=== PATIENT | male | born 1950 | race Caucasian/White ===

== ENCOUNTER → 2016-08-31 | Outpatient (CLI) | payer BC ==
[~2016-08-31] MED LIST: BACTRIM DS DPS1 TAB PO; CLARITIN DPS10 MG PO; ENULOSE10 GM/15 M PO; GLUCOPHAGE-DPS500 MG PO; LASIX DPS80 MG PO; MIRALAX PACKET17 GM PO; NOVOLIN N100 UNIT/1 SQ; SPIRONOLACT50 MG PO; TYLENOL EXTRA500 M1 PO; ULTRAM DPS50 MG PO; ZAROXOLYN2.5 MG PO
== END | disposition home or self-care (01) ==
DX: E11.65 Type 2 diabetes mellitus with hyperglycemia (principal); Z71.3 Dietary counseling and surveillance

== ENCOUNTER 2016-09-14 11:15 | Inpatient (IN) | payer BC ==
[~2016-09-14] VITALS: Ht 185.4 cm; Wt 102.0 kg
--- NOTE | 2016-09-15 08:23 | HP ---
ADMIT: 09/14/2016 RM/LOC: 503 [facility] MR#: [id number] [address] [id number] MICHAEL DINH [address] [place] [address] History and Physical SEX: M AGE: 66 : 1950 DATE OF SERVICE: ADDENDUM: This is an addendum to the H and P dictated by Dr. Maribel Spence on today's date as well. The patient is seen and evaluated with Dr. Spence. I agree with her history, exam, assessment and plan. The patient with increased confusion and longstanding history of liver disease, looks like his UA is positive. We will treat him with antibiotics. He has some [id number] hepatic encephalopathy, which is new for him. Treat him with some lactulose as well. Control his diabetes. On exam, he had some very mild asterixis. Clearly confused and not his normal self, trouble tracking few conversation, otherwise really had minimal edema. No ascites. Lungs are clear. The patient is in agreement with plan with admission and until he improves with as well as further evaluation. Please see H and P dictated by Dr. Spence for full details. Augustus Harrison MD/ jose antonio JOB #: [id number] CC: Augustus Harrison, Attending Physician Augustus Harrison, Family Physician
--- NOTE | 2016-09-16 07:17 | HP ---
ADMIT: 09/14/2016 RM/LOC: 503 [facility] MR#: [id number] 2620 [facility] [address] [place] [id number] MICHAEL SRIVASTAVA [address] [place] [address] History and Physical SEX: M AGE: 66 : 1950 DATE OF SERVICE: 09/14/2016 HISTORY OF PRESENT ILLNESS: Mr. Srivastava is a 66-year-old man with a past medical history significant for decompensated alcoholic cirrhosis; type 2 diabetes, insulin dependent; reset osmostat syndrome; thrombocytopenia secondary to his cirrhosis; malnutrition secondary to his cirrhosis; anemic of chronic disease; hypertension; and a history of E. coli sepsis with spinal abscess, osteomyelitis, and septic arthritis, all treated back in 2015. He presented to the clinic today with some altered mental status. He was then admitted to [facility] [place]. Mr. Srivastava is accompanied by his , Vero. History is obtained from both of these individuals. They state that he was in his usual state of health until yesterday. Vero states that when she returned home from work, he was very altered and confused. He did not seem to know how to do things such as checking his blood sugars. She states that he had forgotten to take all his morning medications as well. The patient states that he has been dizzy yesterday and today. He has had poor appetite and has not been eating as much either. He denies any nasal congestion, cough, sore throat, or runny nose. He denies any chest pain or shortness of breath. He states he has not had any fevers or chills. He denies any abdominal pain. He is unsure if he has been having frequent bowel movements. His states that she notes he has had one last night as he forgot to flush the toilet. She denies there being any blood in his stool. The patient states that he has not had any difficulties urinating. He has had generalized weakness over the last 24 hours and has had more difficulties getting in and out of his chair. He has also been having difficulties using the lift. He states that this lightheadedness is with all activities. He denies it being predominant with sitting or standing. He states that he has had some blurry vision today as well. He denies any double vision. He states that he has not had his vision checked in the last couple of years. states that he has been taking his docusate and MiraLax, but they have really if ever given him lactulose. He has not taken any lactulose within the last several days to weeks. PAST MEDICAL HISTORY: 1. Significant for alcoholic cirrhosis, decompensated and complicated by thrombocytopenia as well as malnutrition. 2. Anemia of chronic disease. 3. Insulin-dependent type 2 diabetes. 4. Hypertension. 5. History of spinal abscess as well as osteomyelitis of his spine and septic arthritis. This is found to be related to E. coli. He was treated at [facility] in [place] for this in September and into October 2015. PAST SURGICAL HISTORY: 1. History of appendectomy. 2. History of flexible sigmoidoscopy and EGD. 3. History of back and knee surgeries. With regard to his EGD, this was completed in October 2015 and did not reveal any ADMIT: 09/14/2016 RM/LOC: 503 [facility] MR#: [id number] [address] [address] MICHAEL SRIVASTAVA [address] [place] [address] History and Physical SEX: M AGE: 66 : 1950 evidence of esophageal varices. He did have some portal hypertensive gastropathy noted. HOME MEDICATIONS: Include: 1. NPH 14 units b.i.d. 2. Metformin 1000 p.o. b.i.d. 3. Lasix 40 mg daily. 4. Metolazone 2.5 mg daily. 5. Aldactone 25 mg p.o. daily. 6. Also has docusate and MiraLax available to him. 7. Claritin. 8. Lactulose 30 g t.i.d. 9. Boost supplement as needed. ALLERGIES: NO KNOWN MEDICAL ALLERGIES. FAMILY HISTORY: The patient's mother had colon cancer and his brother also had cancer, unknown type. No other pertinent family medical history. SOCIAL HISTORY: The patient states he discontinued use of tobacco approximately 33 years ago. He smoked 1 to 2 packs per day prior to this for a number of years. Alcohol: The patient states he has not consumed alcohol for the last year. His confirms that he has been abstinent during this time period. He denies any illicit drugs. 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 He states that he lives in [place] with his Vero as well as few dogs and cats. No young children around. He states that in his free time, he just mainly sits around the house and watches TV. He states that he does not go out much. REVIEW OF SYSTEMS: A 10-point review of systems is completed for this encounter and is negative other than those mentioned in the HPI section. PHYSICAL EXAMINATION: VITAL SIGNS: In the clinic, the patient had a heart rate of 83, blood pressure 132/66, respiratory rate is 16, and is saturating at 96% on room air. He was afebrile. GENERAL: The patient is sitting in the hospital chair. Does not appear to be in any acute distress. He is alert and oriented to person as well as place. HEENT: Normocephalic and atraumatic. Hearing is intact to conversation. Extraocular eye muscles are intact. He has normal white sclerae and normal pink conjunctivae. He does have facial twitching on his left side of his face. LUNGS: Clear to auscultation bilaterally on anterior and posterior exam. HEART: Regular rate and rhythm. No murmurs, rubs, or gallops detected. Pulses are symmetric bilaterally. Trace pitting edema in the lower extremities. ABDOMEN: Soft and nontender. Hypoactive bowel sounds. EXTREMITIES: Warm and well perfused. His pulses are symmetric in his upper ADMIT: 09/14/2016 RM/LOC: 503 [facility] MR#: [id number] [address] [address] MICHAEL SRIVASTAVA [address] [place] [address] History and Physical SEX: M AGE: 66 : 1950 extremities and symmetric in his lower extremities. He does have trace pitting edema bilaterally of the lower extremities. When he hold his hands out, he does have some asterixis noted after approximately 5 to 10 seconds. NEURO: Cranial nerves intact. He does not have any gross neurologic deficits as he moves all extremities equally without difficulties. No slurred speech or facial droop noted. PSYCH: He has a depressed mood and his affect is mood congruent. He does have some difficulties obtaining words, but no tangential speech. LABORATORY DATA AND IMAGING: In the clinic he had an INR, TSH, and CBC as well as CMP drawn. His CBC demonstrates white count of 6.5, hemoglobin of 13.1, and platelets of 90,000. TSH is 4.3. INR is 1.3. His CMP is significant for sodium 130, potassium of 3.4, creatinine of 1.65, BUN of 30, and blood glucose of 240. His total protein is 7.7, his albumin is 2.9, total bilirubin is 2.9, alk phos of 181, AST of 57, and ALT of 30. No new imaging at this point in time. ASSESSMENT AND PLAN: Mr. Srivastava is a 66-year-old guerita with a past medical history significant for alcoholic cirrhosis, insulin-dependent type 2 diabetes, reset osmostat syndrome, and history of Escherichia coli bacteremia and seeding of spinal abscess as well as osteomyelitis and septic arthritis that was treated in 2016 at [facility] who presents for altered mental status. 1. Hepatic encephalopathy. Strongly suspect that it is related to his decompensated liver failure. His MELD score is 23 today, which indicates he has 6% mortality in the next 3 months. He has not been taking lactulose at home. He does have some asterixis on exam. His CMP as well as CBC are grossly within normal limits. We will obtain a UA with microscopy and possible culture as well as blood cultures at this time. If he has any other signs of localizing infection such as cough or shortness of breath, a chest radiograph should be obtained. We will also obtain an ultrasound of his abdomen to evaluate for ascites. If he does have ascites present, then a diagnostic paracentesis should be obtained to rule out spontaneous bacterial peritonitis. If the patient decompensates from a hemodynamic perspective, then he could be empirically started on Rocephin 2 g IV q.24 for a total of 5 days. At this point in time, we will continue to monitor his condition. He should receive lactulose 30 g 3 times daily and titrate to 3 soft stools per day. He can hold the MiraLax and the docusate at this time. The patient should continue to take his Lasix 40 mg daily, metolazone 2.5 mg should proceed the use of Lasix by 30 minutes and he should continue to receive spironolactone 25 mg p.o. daily. Daily weights should be obtained. ADMIT: 09/14/2016 RM/LOC: 503 [facility] MR#: [id number] [address] [place] [id number] MICHAEL SRIVASTAVA [address] [place] [address] History and Physical SEX: M AGE: 66 : 1950 Strict I's and O's should be kept. 2. Insulin-dependent type [address] him on a sliding scale, low dose while in the hospital with a.c. and bedtime correction as well as a.c. and bedtime Accu-Chek. If his sugars are elevated, then we will consider starting NPH at his home dose of 14 units twice daily. 3. Thrombocytopenia secondary to end-stage liver disease. His platelets were 90,000 today. We will continue to monitor them. DVT prophylaxis should be discontinued once platelets less than 50,000. 4. Malnutrition secondary to end-stage liver disease. He is placed on a diabetic diet and can receive Boost supplement 3 times a day as needed. 5. Deep venous thrombosis prophylaxis, heparin 5000 units subcu t.i.d. Incentive spirometry 10 times per hour to be encouraged every hour. Maribel Spence MD Resident / Augustus Harrison MD / jose antonio JOB #: [id number] CC: Augustus Harrison, Attending Physician Augustus Harrison, Family Physician
--- NOTE | 2016-09-16 10:58 | DS ---
ADMIT: 09/14/2016 RM/LOC: 503 [facility] MR#: [id number] 2620 [facility] [address] [place] [phone] MICHAEL DINH [address] [place] [address] Discharge Summary SEX: M AGE: 66 : 1950 ADMISSION DATE: 09/14/2016 DISCHARGE DATE: 09/16/2016 CONSULTATIONS: None. PROCEDURES: None. FINAL DIAGNOSES: 1. Urinary tract infection. 2. Hepatic encephalopathy, moderate. 3. Chronic kidney disease, stage III. 4. Diabetes, type 2. 5. End-stage liver disease. REASON FOR ADMISSION: The patient is a 66-year-old gentleman who presented to clinic with increasing confusion, not acting like himself. Dramatic change for him. Admitted for further stabilization and management of his hepatic encephalopathy, which is new onset for him. HOSPITAL COURSE: The patient was admitted. Initial evaluation showed a UTI. Antibiotics were started, Rocephin IV. He slowly and steadily improved with the addition of lactulose as well. Had no fevers. His culture was growing some growth, but otherwise pending at time of discharge and will be followed up at time of discharge. He was felt safe and stable ready for discharge, and felt improved overall. DISCHARGE INSTRUCTIONS: We will discharge to home. DISCHARGE MEDICATIONS: For discharge meds, please see discharge MAR, which I fully reviewed. He will follow up with me in 10-14 days in clinic. He will have follow-up lab work in clinic at his follow-up appointment as well. He will have Bactrim DS one tab p.o. b.i.d. for 5 days as well as in addition to the other meds he is discharged on. Please see list for full details. Augustus Harrison MD/ wen JOB #: [id number] CC: Augustus Harrison MD, Attending Physician Augustus Harrison MD, Family Physician
[2016-09-17] MEDS ORDERED: GLUCOPHAGE-DPS500 MG PO (09:23)
[2016-09-17] MEDS ORDERED: SPIRONOLACT50 MG PO (09:24)
[2016-09-17] MEDS ORDERED: LASIX DPS80 MG PO (09:24)
[2016-09-17] MEDS ORDERED: MIRALAX PACKET17 GM PO (09:24)
[2016-09-17] MEDS ORDERED: NOVOLIN N100 UNIT/1 SQ (09:25)
[2016-09-17] MEDS ORDERED: ZAROXOLYN2.5 MG PO (09:25)
[2016-09-17] MEDS ORDERED: TYLENOL EXTRA500 M1 PO (09:25)
[2016-09-17] MEDS ORDERED: CLARITIN DPS10 MG PO (09:25)
[2016-09-17] MEDS ORDERED: ENULOSE10 GM/15 M PO (09:26)
[2016-09-17] MEDS ORDERED: BACTRIM DS DPS1 TAB PO (09:26)
[2016-09-17] MEDS ORDERED: ULTRAM DPS50 MG PO (09:26)
== END 2016-09-16 10:00 | disposition home or self-care (01) | DRG 442 ==
LOC: 5MS 11:15
PROVIDERS: ADMIT Internal Medicine
DX: K72.90 Hepatic failure, unspecified without coma (principal); N39.0 Urinary tract infection, site not specified; D69.6 Thrombocytopenia, unspecified; E11.22 Type 2 diabetes mellitus with diabetic chronic kidney disease; E46 Unspecified protein-calorie malnutrition; N18.3 Chronic kidney disease, stage 3 (moderate); I12.9 Hypertensive chronic kidney disease with stage 1 through stage 4 chronic kidney disease, or unspecified chronic kidney disease; D63.8 Anemia in other chronic diseases classified elsewhere; K70.30 Alcoholic cirrhosis of liver without ascites; R25.3 Fasciculation; R27.8 Other lack of coordination; Z79.84 Long term (current) use of oral hypoglycemic drugs; Z79.4 Long term (current) use of insulin; Z87.891 Personal history of nicotine dependence